=== PATIENT | female | born 1935 | race Caucasian/White ===

== ENCOUNTER 2021-03-15 09:00 | Outpatient (RCR) | payer MEDICARE, OTHER, SELFPAY | END 2021-03-15 09:05 | disposition home or self-care (01) | LOC: PT 09:00 | PROVIDERS: Visit Provider Internal Medicine | DX: R60.0 Localized edema (principal) | CPT/HCPCS: 97010; 97014; 97033; 97035; 97110; 97140; 97163; 97760; G0283 ==

== ENCOUNTER → 2023-01-30 09:53 | Outpatient (POV) | payer MEDICARE, OTHER, SELFPAY ==
[2023-01-30 10:16] VITALS: BP 168/88; PULSE 78; RESP 18; O2SAT 95; BMI 21.9
--- NOTE | 2023-01-30 11:18 | EXP.PAIN.OV ---
HPI Data of Consult Patient: new to practice Consult date: 01/30/23 Requesting Physician: Antonella Fierro APRN Primary Care Provider: Romero Pulido MD Consult Narrative Reason for consult: right leg pain, right hip pain History of present illness: Ms. Fisher is a 87 year old female who presents today as a new patient. She is a referral from Romero Pulido's office. Today she rates her pain an 8 out of 10. Patient states her pain is all in her right hip that radiates down her entire right leg to the lower calf. Patient does describe this as a achy, pressure sensation that is worse with increased activity or certain movements such as getting out of bed. Patient does state the pain interferes with her ability perform activities of daily living. She does state today that she is doing well and it is not bothering her. She states prior to this she had 2 weeks of severe pain however it did dissipate. Patient states that she did go to her primary care provider and they did think part of it could have been her SI joint. Patient states she will have occasional flareups and that this has been going on for couple of years. Patient denies any specific trauma or injury. Patient states she did go to physical therapy recently however it worsened her pain causing knee pain. Patient was sent to Abhinav Singh who did injections into her knees which did help. Patient was also sent to Dr. Thakkar who did a back injection and lasted approximately 6 months. Patient denies any previous surgery. She has tried Tylenol arthritis along with heat and ice and topicals with some improvement. Her Villa has been reviewed and is appropriate. CC: Antonella Fierro APRN [facility] Disclaimer: The information contained in this section may have been updated after the patient was seen, as this information can be updated by other users. Medical History (Updated 01/30/23 @ 11:21 by Antonella Fierro APRN) Afib DDD (degenerative disc disease), lumbar HLD (hyperlipidemia) HTN (hypertension) Migraines Mitral valve regurgitation Tricuspid regurgitation Urinary incontinence Surgical History (Updated 01/30/23 @ 10:33 by Rena Zambrano RN) No pertinent past surgical history Family History (Updated 01/30/23 @ 10:32 by Rena Zambrano RN) Other No significant family history Social History (Updated 01/30/23 @ 10:44 by Rena Zambrano RN) Smoking Status: Never smoker alcohol intake: never current occupational status: retired Travel in the last 8 weeks: None Review of Systems Review of Systems Review of systems:: pertinent systems reviewed and negative unless documented below Review of systems (narrative): Review of Systems: General: No recent weight changes, no fever, no sleep disturbances Respiratory: No cough, no shortness of air, no recurring pulmonary infections Cardiovascular/peripheral vascular: No chest pain, no palpitations, no edema, no shortness of breath Gastrointestinal: No new onset incontinence, normal bowel movements reported Genitourinary: No new onset incontinence Musculoskeletal: Right hip pain, right leg pain Psychiatric: [Normal mood/affect] Neurological: [Denies weakness in extremities], [denies balance issues] Meds Home Medications and Allergies Home Medications Medication Instructions Recorded Confirmed Type Unobtainable 01/30/23 01/30/23 History New Prescriptions to Start Prescriptions: Allergies Allergy/AdvReac Type Severity Reaction Status Date / Time No Known Allergies Allergy Verified 01/30/23 10:50 Objective Vital signs: Pulse Resp BP Pulse Ox O2 Del Method 78 18 168/88 H 95 Room Air 01/30/23 10:16 01/30/23 10:16 01/30/23 10:16 01/30/23 10:16 01/30/23 10:16 Narrative: Physical Exam: General: Alert and oriented x3, no acute distress, pleasant and cooperative Lungs: Respirations even and unlabored, symmetrical chest expansion Eyes: PERRL Musculoskeletal: Flexion a
== END ==
PROVIDERS: PCP Internal Medicine; Visit Provider Nurse Practitioner Family
DX: M51.36 Other intervertebral disc degeneration, lumbar region (principal); M25.551 Pain in right hip; M79.604 Pain in right leg
CPT/HCPCS: 99202; G0463

== ENCOUNTER 2023-09-26 11:15 | Emergency (ER) | payer MEDICARE, OTHER, SELFPAY ==
[2023-09-26 11:35] VITALS: BP 172/74; PULSE 67; RESP 20; TEMP 36.5; O2SAT 95; BMI 21.7
[2023-09-26 11:47] LABS: Apearance,Urine Cloudy (Clear); Bilirubin,Urine Negative (Negative); Blood, Urine 3+ (Negative); Color,Urine Amber (Yellow); Glucose,Urine (UA) Negative (Negative); Ketones,Urine Negative (Negative); PH,Urine 7.5 (5.0-8.5); Protein,Urine 2+ (Negative); UTC Leukocyte Esterase,Urine 2+ (Negative); UTC Nitrate,Urine Negative (Negative); Urobilinogen,Urine 1 EU/dl (0.2)
--- NOTE | 2023-09-26 11:54 | ED_ITS ---
Discharge Plan Disposition Patient Disposition: Home, Self-Care Condition: Good Prescriptions Prescriptions: New phenazopyridine [Pyridium] 200 mg tablet 200 mg PO Q8H 2 Days Qty: 6 0RF cephalexin 500 mg capsule 500 mg PO QID 7 Days Qty: 28 0RF No Action atorvastatin 10 mg Tablet 10 mg PO HS amlodipine 5 mg Tablet 5 mg PO DAILY calcium citrate [Citracal] 200 mg (950 mg) Tablet 200 mg PO DAILY clonidine HCl 0.1 mg Tablet 0.1 mg PO TID sotalol 80 mg Tablet 80 mg PO BID metoprolol succinate 100 mg Tablet Extended Release 24 Hr 100 mg PO DAILY hydrochlorothiazide 25 mg Tablet 25 mg PO DAILY lisinopril 40 mg Tablet 40 mg PO DAILY prazosin 2 mg Capsule 2 mg PO HS rivaroxaban 20 mg Tablet 20 mg PO DAILY Referrals Follow up/Referrals: Romero Pulido MD [Primary Care Provider] - See instructions Activity Restrictions/Add. Instructions Additional Instructions/Restrictions: Drink plenty of fluids. Take tylenol or ibuprofen for pain or fever. Take the medications as directed. Follow up with your regular doctor. GO TO THE ER FOR ANY WORSENING SYMPTOMS The pyridium will make your urine turn orange, this is an expected side effect. It will stain your clothes if it comes into contact with them. We will culture the urine. That will tell what bacteria is causing your infection and which antibiotics will treat it best. Sometimes the first antibiotic we prescribe turns out to not work against different bacteria. So, make sure you follow up within 3 days if you are not getting better. Clinical Impressions Clinical Impression: UTI (urinary tract infection) Instructions Patient Instructions: Urine Culture, DI for Urinary Tract Infection (UTI), Phenazopyridine, Cephalexin Discharge ED Provider: Irwin Sherman [facility] General Stated complaint: uti pain Mode of Arrival: Ambulatory Source of Information: Patient Limitations: No Limitations Time Seen by Provider: 09/26/23 11:54 Description of Symptoms (Recalled from Triage Doc. by RN): PATIENT C/O LOWER BACK PAIN, PELVIC PRESSURE, AND HEADACHE THAT STARTED YESTERDAY HEENT Symptoms (Recalled from RN notes): Yes Resp Symptoms (Recalled from RN notes): No Skin Symptoms (Recalled from RN notes): No MS Symptoms (Recalled from RN notes): No Functional Status (Recalled from RN notes): WNL History of Present Illness Provider Complaint: She states that for the past 2 days she has had low back pain, dysuria and urinary frequency. Related Data Home Medications Medication Instructions Recorded Confirmed amlodipine 5 mg tablet 5 mg PO DAILY 01/30/23 09/26/23 atorvastatin 10 mg tablet 10 mg PO HS 01/30/23 09/26/23 calcium citrate 200 mg (950 mg) 200 mg PO DAILY 01/30/23 09/26/23 tablet clonidine HCl 0.1 mg tablet 0.1 mg PO TID 01/30/23 09/26/23 hydrochlorothiazide 25 mg tablet 25 mg PO DAILY 01/30/23 09/26/23 lisinopril 40 mg tablet 40 mg PO DAILY 01/30/23 09/26/23 metoprolol succinate 100 mg 100 mg PO DAILY 01/30/23 09/26/23 tablet,extended release 24 hr prazosin 2 mg capsule 2 mg PO HS 01/30/23 09/26/23 rivaroxaban 20 mg tablet 20 mg PO DAILY 01/30/23 09/26/23 sotalol 80 mg tablet 80 mg PO BID 01/30/23 09/26/23 Previous Rx's Medication Instructions Recorded cephalexin 500 mg capsule 500 mg PO QID 7 days #28 caps 09/26/23 phenazopyridine 200 mg tablet 200 mg PO Q8H 2 days #6 tabs 09/26/23 (Pyridium) Allergies Allergy/AdvReac Type Severity Reaction Status Date / Time nitrofurantoin Allergy Verified 01/30/23 12:22 sulfamethoxazole Allergy Verified 01/30/23 12:22 [From Bactrim] trimethoprim [From Bactrim] Allergy Verified 01/30/23 12:22 Worker's Comp Is this a Worker's Comp case?: No [facility] Disclaimer: The information contained in this section may have been updated after the patient was seen, as this information can be updated by other users. Medical History (Updated 09/26/23 @ 11:56 by Irwin Sherman APRN) Tricuspid regurgitation Mitral valve regurgitation Urinary incontinence HTN (hypertension) HLD (hyperlipidemia) DDD (degenerative disc disease), lumbar Migraines Afib Surgical History No pertinent past surgical history Family History (Updated 01/30/23 @ 10:32 by Rena Zambrano RN) Other No significant family history Social History (Updated 01/30/23 @ 10:44 by Rena Zambrano RN) Smoking Status: Never smoker alcohol intake: never current occupational status: retired Travel in the last 8 weeks: None ROS Obtained: Yes All systems reviewed & no additional complaints except as documented Constitutional Constitutional: Reports system reviewed and no additional complaints, except as documented, Denies chills and Denies fever(s) Eyes Eyes: Denies eye discharge ENT Ears, Nose, Mouth, and Throat: Denies dysphagia, Denies sore throat and Denies throat swelling Cardiovascular Cardiovascular: Denies chest pain and Denies dyspnea Respiratory Respiratory: Denies chest congestion, Denies cough and Denies dyspnea Gastrointestinal Gastrointestingal: Denies abdominal pain, constipation, diarrhea, dysphagia, nausea or vomiting Genitourinary Female Genitourinary: Reports as per HPI, Reports dysuria, Reports urinary frequency, Denies urinary incontinence, Reports urinary hesitancy and Reports urinary urgency Musculoskeletal Musculoskeletal: Denies arthralgias and Reports back pain Integumentary/Breasts Skin/Breast: Denies rash Neurologic Neurologic: Denies paresthesias Allergic/Immunologic Allergic/Immunologic: Denies throat swelling Physical Exam General General appearance: alert and in no apparent distress Head Head exam: atraumatic and normocephalic Eye Eye exam: Present normal appearance, PERRL and EOMI ENT ENT exam: Present normal exam, mucous membranes moist, TM's normal bilaterally and normal external ear exam Neck Neck exam: Present normal inspection, full ROM and trachea midline; Absent tenderness, meningismus or lymphadenopathy Chest Chest inspection: Present normal inspection and symmetric chest wall rise; Absent tenderness Respiratory Respiratory exam: Present normal lung sounds bilaterally; Absent respiratory distress, wheezes or stridor Cardiovascular Cardiovascular exam: Present regular rate, normal rhythm and normal heart sounds Abdominal Exam Abdominal exam: Present soft and normal bowel sounds; Absent distention, tenderness, guarding, rebound, rigidity, incision, psoas sign, obturator sign, heel tap sign, Harrison's sign, Rovsing's sign or tenderness at McBurney's Point Extremities Exam Extremities exam: Present normal inspection, full ROM and normal capillary refill; Absent tenderness, edema, joint swelling, calf tenderness or cyanosis Back Exam Back exam: Present normal inspection and full ROM; Absent tenderness, CVA tenderness (R) or CVA tenderness (L) Neurological Exam Neurological exam: Present alert, oriented X3 and normal gait Psychiatric Psychiatric exam: Present normal affect and normal mood Skin Skin exam: Present warm, dry, intact and normal color Lymphatic Lymphatic Findings: no adenopathy Medical Decision Making Medical Records Medical records reviewed: No I reviewed the patient's medical records. Villa Inquiry Pt receiving controlled substance: No Vital Signs: 09/26/23 11:35 Temperature 97.7 F Temperature Source Oral Pulse Rate [Left Brachial] 67 Respiratory Rate 20 Blood Pressure [Left Arm] 172/74 H Blood Pressure Mean [Left Arm] 106 Blood Pressure Source [Left Arm] Automatic Cuff Blood Pressure Position [Left Arm] Sitting 02 Sat by Pulse Oximetry 95 Oxygen Delivery Method Room Air Lab Data Lab results reviewed: Yes I reviewed the patient's lab results. Lab Results 09/26/23 11:42: Urine Color Antonella, Urine Appearance Cloudy, Urine pH 7.5, Ur Specific [place] 1.020, Urine Protein 2+, Urine Glucose (UA) Negative, Urine Ketones Negative, Urine Blood 3+, Urine Nitrate Negative, Urine Bilirubin Negative, Urine Urobilinogen 1, Ur Leukocyte Esterase 2+ A Orders (Tests/Meds): ORDERS Category Date Time Status Urine Culture Stat Micro 09/26/23 11:42 Ordered
[2023-09-26 12:05] VITALS: BP 172/74; PULSE 67; RESP 20; TEMP 36.5; O2SAT 95
--- NOTE | 2023-09-30 13:57 | PC.NURSE ---
URINE CULTURE REVIEWED WITH Alfredo ENRIQUE, NO CHANGE NEEDED
== END 2023-09-26 12:08 | disposition home or self-care (01) ==
PROVIDERS: Emergency Provider Nurse Practitioner Family; PCP Internal Medicine
DX: N39.0 Urinary tract infection, site not specified (principal); B96.4 Proteus (mirabilis) (morganii) as the cause of diseases classified elsewhere; M54.59 Other low back pain; R30.0 Dysuria; R35.0 Frequency of micturition
CPT/HCPCS: 81003; 87086; 87088; 87186; 99204; 99212; G0463

== ENCOUNTER 2023-12-16 15:06 | Emergency (ER) | payer MEDICARE, OTHER, SELFPAY ==
[2023-12-16 16:19] VITALS: BP 167/84; PULSE 75; RESP 20; TEMP 36.5; O2SAT 96; BMI 21.7
[2023-12-16 16:24] LABS: Microscopic, Urine URINE MICROSCOPIC (MICROSCOPIC)
--- NOTE | 2023-12-16 16:32 | ED_ITS ---
Discharge Plan Disposition Patient Disposition: Home, Self-Care Condition: Good Prescriptions Prescriptions: New cephalexin 500 mg capsule 500 mg PO Q12H 7 Days Qty: 14 0RF No Action phenazopyridine [Pyridium] 200 mg tablet 200 mg PO Q8H 2 Days Qty: 6 0RF cephalexin 500 mg capsule 500 mg PO QID 7 Days Qty: 28 0RF atorvastatin 10 mg Tablet 10 mg PO HS amlodipine 5 mg Tablet 5 mg PO DAILY calcium citrate [Citracal] 200 mg (950 mg) Tablet 200 mg PO DAILY clonidine HCl 0.1 mg Tablet 0.1 mg PO TID sotalol 80 mg Tablet 80 mg PO BID metoprolol succinate 100 mg Tablet Extended Release 24 Hr 100 mg PO DAILY hydrochlorothiazide 25 mg Tablet 25 mg PO DAILY lisinopril 40 mg Tablet 40 mg PO DAILY prazosin 2 mg Capsule 2 mg PO HS rivaroxaban 20 mg Tablet 20 mg PO DAILY Referrals Follow up/Referrals: Provider,Referral, MD [Primary Care Provider] - See instructions Activity Restrictions/Add. Instructions Additional Instructions/Restrictions: Take medication as prescribed. Increase fluids and rest. Follow up with PCP if symptoms persist or worsen Clinical Impressions Clinical Impression: UTI (urinary tract infection) Qualifiers: Urinary tract infection type: acute cystitis Hematuria presence: with hematuria Qualified Code(s): N30.01 - Acute cystitis with hematuria Instructions Patient Instructions: DI for Urinary Tract Infection (UTI) Print Language Print Language: Mongolian Discharge ED Provider: Nanda Daniels [facility] General Stated complaint: poss UTI Mode of Arrival: Ambulatory Source of Information: Patient Time Seen by Provider: 12/16/23 16:24 Description of Symptoms (Recalled from Triage Doc. by RN): C/O UTI S/S, BURNING AND PRESSURE HEENT Symptoms (Recalled from RN notes): No Resp Symptoms (Recalled from RN notes): No Skin Symptoms (Recalled from RN notes): No MS Symptoms (Recalled from RN notes): No Functional Status (Recalled from RN notes): WNL Related Data Home Medications ?Medication ?Instructions ?Recorded ?Confirmed amlodipine 5 mg tablet 5 mg PO DAILY 01/30/23 09/26/23 atorvastatin 10 mg tablet 10 mg PO HS 01/30/23 09/26/23 calcium citrate 200 mg PO DAILY 01/30/23 09/26/23 clonidine HCl 0.1 mg tablet 0.1 mg PO TID 01/30/23 09/26/23 hydrochlorothiazide 25 mg tablet 25 mg PO DAILY 01/30/23 09/26/23 lisinopril 40 mg tablet 40 mg PO DAILY 01/30/23 09/26/23 metoprolol succinate 100 mg 100 mg PO DAILY 01/30/23 09/26/23 tablet,extended release 24 hr prazosin 2 mg capsule 2 mg PO HS 01/30/23 09/26/23 rivaroxaban 20 mg tablet 20 mg PO DAILY 01/30/23 09/26/23 sotalol 80 mg tablet 80 mg PO BID 01/30/23 09/26/23 Previous Rx's ?Medication ?Instructions ?Recorded cephalexin 500 mg capsule 500 mg PO QID 7 days #28 caps 09/26/23 phenazopyridine 200 mg tablet 200 mg PO Q8H 2 days #6 tabs 09/26/23 (Pyridium) cephalexin 500 mg capsule 500 mg PO Q12H 7 days #14 caps 12/16/23 Allergies Allergy/AdvReac Type Severity Reaction Status Date / Time nitrofurantoin Allergy Verified 01/30/23 12:22 sulfamethoxazole Allergy Verified 01/30/23 12:22 [From Bactrim] trimethoprim [From Bactrim] Allergy Verified 01/30/23 12:22 Worker's Comp Is this a Worker's Comp case?: No [facility] Disclaimer: The information contained in this section may have been updated after the patient was seen, as this information can be updated by other users. Medical History (Updated 12/16/23 @ 16:43 by Nanda Daniels APRN) Tricuspid regurgitation Mitral valve regurgitation Urinary incontinence HTN (hypertension) HLD (hyperlipidemia) DDD (degenerative disc disease), lumbar Migraines Afib Surgical History No pertinent past surgical history Family History (Updated 01/30/23 @ 10:32 by Rena Zambrano RN) Other No significant family history Social History (Updated 01/30/23 @ 10:44 by Rena Zambrano RN) Smoking Status: Never smoker alcohol intake: never current occupational status: retired Travel in the last 8 weeks: None ROS Obtained: Yes All systems reviewed & no additional complaints except as documented Constitutional Constitutional: Reports system reviewed and no additional complaints, except as documented Eyes Eyes: Reports system reviewed and no additional complaints, except as documented ENT Ears, Nose, Mouth, and Throat: Reports system reviewed and no additional complaints, except as documented Cardiovascular Cardiovascular: Reports system reviewed and no additional complaints, except as documented Respiratory Respiratory: Reports system reviewed and no additional complaints, except as documented Gastrointestinal Gastrointestingal: Reports system reviewed and no additional complaints, except as documented Genitourinary Female Genitourinary: Reports system reviewed and no additional complaints, except as documented and Reports dysuria Musculoskeletal Musculoskeletal: Reports system reviewed and no additional complaints, except as documented Integumentary/Breasts Skin/Breast: Reports system reviewed and no additional complaints, except as documented Neurologic Neurologic: Reports system reviewed and no additional complaints, except as do cumented Endocrine Endocrine: Reports system reviewed and no additional complaints, except as documented Hematologic/Lymphatic Henatologic/Lymphatic: Reports system reviewed and no additional complaints, except as documented Allergic/Immunologic Allergic/Immunologic: Reports system reviewed and no additional complaints, except as documented Physical Exam General General appearance: alert and in no apparent distress Head Head exam: atraumatic and normocephalic Eye Eye exam: Present normal appearance ENT ENT exam: Present normal exam and normal oropharynx Neck Neck exam: Present normal inspection Chest Chest inspection: Present normal inspection and symmetric chest wall rise Respiratory Respiratory exam: Present normal lung sounds bilaterally Cardiovascular Cardiovascular exam: Present regular rate and normal rhythm Abdominal Exam Abdominal exam: Present soft, tenderness and normal bowel sounds Abdominal tenderness: Present suprapubic Extremities Exam Extremities exam: Present normal inspection Back Exam Back exam: Present normal inspection Neurological Exam Neurological exam: Present alert and oriented X3 Psychiatric Psychiatric exam: Present normal affect and normal mood Skin Skin exam: Present warm, dry and intact Lymphatic Lymphatic Findings: no adenopathy Medical Decision Making Medical Records Screening: Per USPSTF and CDC recommendations, given the prevalence of disease in our region, it is our hospital?s policy to screen for HIV and viral Hepatitis for all patients aged 18 and over and those with ongoing risk factors. Villa Inquiry Pt receiving controlled substance: No Villa was queried for this patient: No Vital Signs: 12/16/23 16:19 Temperature 97.7 F Temperature Source Oral Pulse Rate [Left Radial] 75 Respiratory Rate 20 Blood Pressure [Left Arm] 167/84 H Blood Pressure Mean [Left Arm] 111 02 Sat by Pulse Oximetry 96 Orders (Tests/Meds): ORDERS Category Date Time Status UA [Urinalysis and Microscopic] Stat Lab 12/16/23 16:04 Received
[2023-12-16 17:11] LABS: Appearance,Urine CLEAR (Clear); Bilirubin,Urine Negative (Negative); Blood, Urine 2+ (Negative); Color,Urine YELLOW (Yellow); Glucose,Urine (UA) Negative (Negative); Ketones,Urine Negative (Negative); Leukocyte Esterase,Urine 1+ (Negative); Nitrate,Urine Negative (Negative); Protein,Urine 1+ (Negative); Specific Gravity, Urine >= 1.030 (1.005-1.030); Urobilinogen,Urine 0.2 EU/dl (0.2)
[2023-12-16 18:06] VITALS: BP 167/84; PULSE 75; RESP 20; TEMP 36.5
--- NOTE | 2023-12-19 14:04 | PC.NURSE ---
REVIEWED PATIENT'S URINE CULTURE WITH Esvin CEDENO APRN. NO CHANGES NEEDED AT THIS TIME
== END 2023-12-16 18:06 | disposition home or self-care (01) ==
PROVIDERS: Emergency Provider Nurse Practitioner Family
DX: N30.01 Acute cystitis with hematuria (principal)
CPT/HCPCS: 81001; 87086; 87088; 87186; 99213; G0381

== ENCOUNTER 2024-11-09 14:45 | Outpatient (CLI) | payer MEDICARE, OTHER, SELFPAY ==
--- OUTSIDE RECORDS SUMMARY | 2024-10-10 10:00 | XMS_ITS | Encounter Summary ---
Author Organization [facility] Address [address] [place] [address] Care Team Providers Care Residential Supervisor Name Role Phone Romero Pulido MD Primary Care Provider [phone] Reason for Visit * Reason Comments Follow-up 6 month follow up ch steven medical problems Encounter Details Date Type Department Care Team (Late st Contact Info) Description 10/10/2024 10:00 AM EDT Office Visit [facility]EDIATRICS [address] [phone] Romero Pulido MD [address] [address] Essential hypertension (Primary Dx); Migraine without status migrainosus, not intractable, unspecified migraine type; Hyperlipidemia, unspecified hyperlipidemia type; Chronic atrial fibrillation; Impaired glucose tolerance; Leukocytes in urine Social History Tobacco Use Types Packs/Day Years Used Date Smoking Tobacco: Never Passive Smoke Exposure: Never Smokeless Tobacco: Never Tobacco Cessation:Counseling Given: Not Answered Alcohol Use Standard Drinks/Week Comments No 0 (1 standard drink = 0.6 oz pur e alcohol) PHQ-2 Answer Date Recorded Retired PHQ-9: Brief Depression Severity Measure Score 0 03/30/2022 PHQ-2 Answer Date Recorded Patient Health Questionnaire-2 Score 0 04/11/2024 Comments No Sex and Gender Information Value Date Recorded Sex Assigned at Female 10/03/2024 2:48 PM EDT Legal Sex Female 12:50 PM EDT Gender Identity Not on file Sexual Orientation Not on file documented as of this encounter Last Filed Vital Signs Vital Sign Reading Time Taken Comments Blood Pressure 142/68 10/10/2024 10:24 AM EDT Pulse 68 10/10/2024 9:49 AM EDT Temperature 36.4 C (97.5 F) 10/10/2024 9:49 AM EDT Respiratory Rate 16 10/10/2024 9:49 AM EDT Oxygen Saturation - - Inhaled Oxygen Concentration - - Weight 53.5 kg (118 lb) 10/10/2024 9:49 AM EDT Height - - Body Mass Index 21.76 04/11/2024 10:07 AM EST documented in this encounter Progress Notes * Romero Pulido MD - 10/10/2024 10:00 AM EDT Chief Complaint Patient presents with Follow-up 6 month follow up chronic medical problems History of Present Illness The patient has a history of migraines. She states she gets relief from migraine medication. She only uses them as needed and requests a refill today. The patient presents for a follow-up related to hypertension. The patient reports that she has had no headaches, chest pain, dyspnea, edema, syncope, blurred vision or palpitations. She states that she is taking her medication as prescribed. She is not having medication side effects. The patient presents for a follow-up related to hyperlipidemia. She is following a low fat diet. She reports that she is exercising. She is taking atorvastatin. The patient is taking her medication as prescribed. She reports no medication side effects, including muscle cramps, abdominal pain, headaches or weakness. She denies orthopnea, paroxysmal nocturnal dyspnea or dyspnea on exertion. The patient presents for a follow-up related to chronic atrial fibrillation. She denies palpitations. The patient denies fatigue, dizziness, nausea or exercise intolerance. The patient presents for a follow-up related to impaired glucose tolerance. She does not check her blood sugars at home. She denies hypoglycemic symptoms. The patient denies polyuria, polydypsia or polyphagia. She reports no symptoms of neuropathy. The patient is not on medication for her impaired glucose tolerance. The patient does check her feet daily at home. Medications Current Outpatient Medications: amLODIPine (NORVASC) 5 MG tablet, TAKE 1 TABLET EVERY DAY, Disp: 90 tablet, Rfl: 3 atorvastatin (LIPITOR) 10 MG tablet, TAKE 1 TABLET AT BEDTIME, Disp: 90 tablet, Rfl: 3 oqwwqdwylc-mwnqwtjtpnxff-yqzmloop-codeine (FIORICET WITH CODEINE) 44-039-66-30 MG per capsule, Take1 capsule by mouth Every 6 (Six) Hours As Needed for Headache., Disp: 90 capsule, Rfl: 2 calcium citrate-vitamin d (CITRACAL) 200-250 MG-UNIT tablet tablet, Take by mouth Daily., Disp: , Rfl: Cholecalciferol (VITAMIN D3 PO), Take by mouth Daily., Disp: , Rfl: cloNIDine (CATAPRES) 0.1 MG tablet, Take 1 tablet by mouth 3 (Three) Times a Day As Needed for HighBlood Pressure., Disp: 90 tablet, Rfl: 1 fluticasone (FLONASE) 50 MCG/ACT nasal spray, 2 sprays Daily., Disp: , Rfl: GARLIC-VIT B6-VIT B12-FA PO, Take by mouth Daily., Disp: , Rfl: hydroCHLOROthiazide (HYDRODIURIL) 25 MG tablet, TAKE 1 TABLET EVERY DAY (Patient taking differently: Take 0.5 tablets by mouth Daily.), Disp: 90 tablet, Rfl: 3 lisinopril (PRINIVIL,ZESTRIL) 40 MG tablet, Take 1 tablet by mouth Daily., Disp: , Rfl: metoprolol succinate XL (Toprol XL) 100 MG 24 hr tablet, Take 1 tablet by mouth Daily., Disp: 30 tablet, Rfl: 0 prazosin (MINIPRESS) 2 MG capsule, Take 1 capsule by mouth Every Night., Disp: , Rfl: rivaroxaban (XARELTO) 20 MG tablet, Take 1 tablet by mouth Daily With Dinner., Disp: , Rfl: sotalol (BETAPACE) 80 MG tablet, Take 0.5 tablets by mouth 2 (Two) Times a Day. 1/2 in the morning and 1/2 at night, Disp: , Rfl: Allergies Allergies Allergen Reactions Bactrim [Sulfamethoxazole-Trimethoprim] Rash Nitrofurantoin Rash Problem List Patient Active Problem List Diagnosis Abnormal CT of the chest Bronchiectasis without complication Dyslipidemia Essential hypertension Prediabetes Microscopic hematuria Chronic tension-type headache, not intractable Recurrent UTI Varicose veins of legs Functional urinary incontinence Menopause Vaginal atrophy Chronic atrial fibrillation Spondylosis of lumbar region without myelopathy or radiculopathy Degeneration of lumbar or lumbosacral intervertebral disc Lumbar stenosis with neurogenic claudication 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 Physical Examination BP 142/68 Pulse 68 Temp 97.5 ??F (36.4 ??C) (Infrared) Resp 16 Wt 53.5 kg (118 lb) LMP (LMP Unknown) BMI 21.76 kg/m?? Answers submitted by the patient for this visit: High Blood Pressure Questionnaire (Submitted on 10/03/2024) Chief Complaint: Hypertension Chronicity: recurrent Onset: more than 1 year ago Progression since onset: unchanged Condition status: controlled Compliance problems: no compliance problems Additional Information: Has been OK Physical Exam Vitals reviewed. Constitutional: General: She is not in acute distress. Appearance: Normal appearance. She is not ill-appearing, toxic-appearing or diaphoretic. HENT: Head: Normocephalic and atraumatic. Eyes: General: No scleral icterus. Pupils: Pupils are equal, round, and reactive to light. Cardiovascular: Rate and Rhythm: Normal rate and regular rhythm. Pulses: Normal pulses. Heart sounds: Normal heart sounds. No murmur heard. No friction rub. No gallop. Pulmonary: Effort: Pulmonary effort is normal. No respiratory distress. Breath sounds: Normal breath sounds. No stridor. No wheezing, rhonchi or rales. Chest: Chest wall: No tenderness. Neurological: General: No focal deficit present. Mental Status: She is alert. Psychiatric: Mood and Affect: Mood normal. Behavior: Behavior normal. Thought Content: Thought content normal. Judgment: Judgment normal. Diagnoses and all orders for this visit: 1. Essential hypertension (Primary) - CBC & Differential; Future - Comprehensive Metabolic Panel; Future - POC Urinalysis Dipstick, Automated; Future 2. Migraine without status migrainosus, not intractable, unspecified migraine type - qvaceomhbf-jeivxeloqyhit-ghgvtlps-codeine (FIORICET WITH CODEINE) 48-005-27-30 MG per capsule; Take 1 capsule by mouth Every 6 (Six) Hours As Needed for Headache. Dispense: 90 capsule; Refill: 2 3. Hyperlipidemia, unspecified hyperlipidemia type - Comprehensive Metabolic Panel; Future 4. Chronic atrial fibrillation 5. Impaired glucose tolerance - Hemoglobin A1c; Future - POC Microalbumin; Future Discussed continue on all prescribed medications. The patient was instructed to return for follow-up and medicare wellness physical in 6 months. The patient was instructed to return sooner if the condition changes, worsens, or does not resolve. Attending Note: Patient was personally seen and examined by me. I have obtained and corroborated the history and examination as documented above, and agree with the accuracy of the documented information. All orders were reviewed and personally signed by me. Romero Pulido MD 14:37 EDT 10/10/24 documented in this encounter Plan of Treatment Upcoming Encounters Date Type Department Care Team (Late st Contact Info) Description 04/23/2025 10:00 AM EST Office Visit [facility]AT[facility]ICS [address] [phone] Romero Pulido MD [address] [address] documented as of this encounter Procedures Procedure Name Priority Date/Time Associated Diagnosis Comments POCT URINALYSIS DIPSTICK, AUTOMATED Routine 10/10/2024 2:11 PM EDT Essential hypertension POCT MICROALBUMIN Routine 10/10/2024 2:1 1 PM EDT Impaired glucose tolerance URINE CULTURE Routine 10/10/2024 11:31 AM EDT Leukocytes in urine CBC WITH AUTO DIFFERENTIAL Routine 10/10/2024 11:10 AM EDT Essential hypertension CBC AND DIFFERENTIAL Routine 10/10/2024 11:10 AM EDT Essential hypertension HEMOGLOBIN A1C Routine 10/10/2024 11:10 AM EDT Impaired glucose tolerance COMPREHENSIVE METABOLIC PANEL Routine 10/10/2024 11:10 AM EDT Essential hypertension Hyperlipidemia, unspecified hyperlipidemia type documented in this encounter Results * POC Microalbumin (10/10/2024 2:11 PM EDT) Microalbumin, Urine 30 [facility] Creatinine, Urine 200 [facility] Lot Number [id number] [facility] Expiration Date 07/03/25 [facility] POC Urine Albumin Creatinine Ratio <30 <30 [facility] Urine 10/10/2024 2:11 PM EDT Romero Pulido MD POINT OF CARE TEST ORDERAB LES Final Result Performing Organization Address City/[facility]/ZIP Co de Phone Number [facility]
[address] [place] [address], [place] [phone] * (ABNORMAL) POC Urinalysis Dipstick, Automated (10/10/2024 2:11 PM EDT) Pathologist Kevin Color Yellow Yellow, Straw, Dark Yellow, Antonella [facility] Clarity, UA Clear Clear [facility] Specific [place] 1.010 1.005 - 1.030 [facility] pH, Urine 7.0 5.0 - 8.0 [facility] Leukocytes 500 Jean/ul(A) Negative [facility] Nitrite, UA Negative Negative [facility] Protein, POC Negative Negative mg/dL [facility] Glucose, UA Negative Negative mg/dL [facility] Ketones, UA Negative Negative [facility] Urobilinogen, UA Normal Normal, 0.2 E.U./dL [facility] Bilirubin Negative Negative [facility] Blood, UA Negative Negative [facility] Lot Number [id number] [facility] Expiration Date 09/02/25 [facility] Urine 10/10/2024 2:11 PM EDT us Romero Pulido MD POINT OF CARE TEST ORDERAB LES Final Result [facility]
[address] [place] [address], * Urine Culture - Urine, Urine, Clean Catch (10/10/2024 11:31 AM EDT) Pathologist [facility] Urine Culture <10,000 CFU/mL Normal Urogenital Asia PAMELA 10/12/2024 10:55 AM EDT [facility] Urine Urine specimen obtained by clean catch procedure / Unknown Collection / Unknown 10/10/2024 11:31 AM EDT 10/10/2024 11:31 AM EDT [facility] - 10/12/2024 10:55 AM EDT Colonization of the urinary tract without infection is common. Treatment is discouraged unless the patient is symptomatic, , or undergoing an invasive urologic procedure. Romero Pulido MD MICROBIOLOGY - GENERAL ORD ERABLES Final Result Performing Organization Address [facility]/State/ZIP Co de Phone Number [facility]
[address] [place] [address], * (ABNORMAL) CBC Auto Differential (10/10/2024 11:10 AM EDT) Pathologist [facility] WBC 5.00 3.40 - 10.80 10*3/mm3 10/10/2024 6:24 PM EDT [facility] RBC 3.74(L) 3.77 - 5.28 10*6/mm3 10/10/2024 6:24 PM EDT [facility] Hemoglobin 13.0 12.0 - 15.9 g/dL 10/10/2024 6:24 PM T [facility] Hematocrit 37.8 34.0 - 46.6 % 10/10/2024 6:24 PM [facility] MCV 101.1(H) 79.0 - 97.0 fL 10/10/2024 6:24 PM EDT [facility] MCH 34.8(H) 26.6 - 33.0 pg 10/10/2024 6:24 PM EDT [facility] MCHC 34.4 31.5 - 35.7 g/dL 10/10/2024 6:24 PM EDT [facility] RDW 11.1(L) 12.3 - 15.4 % 10/10/2024 6:24 PM EDT [facility] RDW-SD 40.9 37.0 - 54.0 fl 10/10/2024 6:24 PM EDT [facility] MPV 11.8 6.0 - 12.0 fL 10/10/2024 6:24 PM EDT [facility] Platelets 208 140 - 450 10*3/mm3 10/10/2024 6:24 PM T [facility] Neutrophil % 68.8 42.7 - 76.0 % 10/10/2024 6:24 PM T [facility] Lymphocyte % 16.0(L) 19.6 - 45.3 % 10/10/2024 6:24 PM EDT [facility] Monocyte % 12.2(H) 5.0 - 12.0 % 10/10/2024 6:24 PM EDT [facility] Eosinophil % 2.2 0.3 - 6.2 % 10/10/2024 6:24 PM EDT [facility] Basophil % 0.4 0.0 - 1.5 % 10/10/2024 6:24 PM EDT [facility] Immature Grans % 0.4 0.0 - 0.5 % 10/10/2024 6:24 PM EDT [facility] Neutrophils, Absolute 3.44 1.70 - 7.00 10*3/mm3 10/10/2024 6:24 PM EDT [facility] Lymphocytes, Absolute 0.80 0.70 - 3.10 10*3/mm3 10/10/2024 6:24 PM EDT [facility] Monocytes, Absolute 0.61 0.10 - 0.90 10*3/mm3 10/10/2024 6:24 PM EDT [facility] Eosinophils, Absolute 0.11 0.00 - 0.40 10*3/mm3 10/10/2024 6:24 PM EDT [facility] Basophils, Absolute 0.02 0.00 - 0.20 10*3/mm3 10/10/2024 6:24 PM EDT [facility] Immature Grans, Absolute 0.02 0.00 - 0.05 10*3/mm3 10/10/2024 6:24 PM EDT [facility] nRBC 0.0 0.0 - 0.2 /100 WBC 10/10/2024 6:24 PM EDT [facility] Blood Venipuncture / Unknown 10/10/2024 11:10 AM EDT 10/10/2024 11:10 AM EDT us Romero Pulido MD LAB BLOOD ORDERABLES Final Result Performing Organization Address [facility]/ZIP Co de Phone Number [facility]
[address] [place] [address], * (ABNORMAL) Hemoglobin A1c (10/10/2024 11:10 AM EDT) Hemoglobin A1C 6.20(H) 4.80 - 5.60 % 10/10/2024 7:04 PM EDT [facility] Blood Venipuncture / Unknown 10/10/2024 11:10 AM EDT 10/10/2024 11:10 AM EDT Narrative [facility] - 10/10/2024 7:04 PM EDT Hemoglobin A1C Ranges: Increased Risk for Diabetes 5.7% to 6.4% Diabetes >= 6.5% Diabetic Goal < 7.0% us Romero Pulido MD LAB BLOOD ORDERABLES Final Result Performing Organization Address City/[facility]/ZIP Co de Phone Number [facility]
[address] [place] [address], * (ABNORMAL) Comprehensive Metabolic Panel (10/10/2024 11:10 AM EDT) Glucose 101(H) 65 - 99 mg/dL 10/10/2024 7:48 PM [facility] BUN 12.0 8.0 - 23.0 mg/dL 10/10/2024 7:48 PM [facility] Creatinine 0.61 0.57 - 1.00 mg/dL 10/10/2024 7:48 PM [facility] Sodium 133(L) 136 - 145 mmol/L 10/10/2024 7:48 PM T [facility] Potassium 4.6 3.5 - 5.2 mmol/L 10/10/2024 7:48 PM [facility] Chloride 92(L) 98 - 107 mmol/L 10/10/2024 7:48 PM [facility] CO2 30.0(H) 22.0 - 29.0 mmol/L 10/10/2024 7:48 PM [facility] Calcium 10.1 8.6 - 10.5 mg/dL 10/10/2024 7:48 PM T [facility] Total Protein 7.2 6.0 - 8.5 g/dL 10/10/2024 7:48 PM T [facility] Albumin 4.4 3.5 - 5.2 g/dL 10/10/2024 7:48 PM [facility] ALT (SGPT) 12 1 - 33 U/L 10/10/2024 7:48 PM T [facility] AST (SGOT) 26 1 - 32 U/L 10/10/2024 7:48 PM T [facility] Alkaline Phosphatase 103 39 - 117 U/L 10/10/2024 7:48 PM T [facility] Total Bilirubin 0.4 0.0 - 1.2 mg/dL 10/10/2024 7:48 PM T [facility] Globulin 2.8 gm/dL 10/10/2024 7:48 PM [facility] A/G Ratio 1.6 g/dL 10/10/2024 7:48 PM T [facility] BUN/Creatinine Ratio 19.7 7.0 - 25.0 10/10/2024 7:48 PM EDT [facility] Anion Gap 11.0 5.0 - 15.0 mmol/L 10/10/2024 7:48 PM EDT [facility] eGFR 86.7 >60.0 mL/min/1.7 3 10/10/2024 7:48 PM EDT [facility] Blood Structure of left upper limb / Unknown Venipuncture / Unknown 10/10/2024 11:10 AM EDT 10/10/2024 11:10 AM EDT Narrative [facility] - 10/10/2024 7:48 PM EDT GFR Categories in Chronic Kidney Disease (CKD) GFR Category GFR (mL/min/1.73) Interpretation G1 90 or greater Normal or high (1) G2 60-89 Mild decrease (1) G3a 45-59 Mild to moderate decrease G3b 30-44 Moderate to severe decrease G4 15-29 Severe decrease G5 14 or less Kidney failure (1)In the absence of evidence of kidney disease, neither GFR category G1 or G2 fulfill the criteria for CKD. eGFR calculation 2020 CKD-EPI creatinine equation, which does not include race as a factor Romero Pulido MD LAB BLOOD ORDERABLES Final Result [facility]
[address] [place] [address], documented in this encounter Visit Diagnoses Diagnosis Essential hypertension- Primary Unspecified essential hypertension Migraine without status migrainosus, not intractable, unspecified migraine type Hyperlipidemia, unspecified hyperlipidemia type Chronic atrial fibrillation Atrial fibrillation Impaired glucose tolerance Impaired glucose tolerance test Leukocytes in urine Other nonspecific finding on examination of urine documented in this encounter Care Teams Residential Supervisor Relationship Specialty Start Date End Date Romero Pulido MD 100 [facility] [address] [place] [address] PCP - General Internal Medicine 08/19/19 documented as of this encounter
--- OUTSIDE RECORDS SUMMARY | 2024-11-11 10:26 | XMS_ITS | Clinical Summary ---
Author Organization [facility] Address [address] [place] [address] Care Team Providers Care Commodity Buyer Name Role Phone Romero Pulido MD Primary Care Provider [phone]- [phone] Allergies Active Allergy Reactions Criticality Noted Date Comments Sulfamethoxazole-Trimethoprim Rash Medium 2015 Nitrofurantoin Rash Low 06/12/2015 Medications sotalol (BETAPACE) 80 MG tablet Take 0.5 tablets by mouth 2 (Two) Times a Day. 1/2 in the morning and 1/2 at night 5 Active rivaroxaban (XARELTO) 20 MG tablet Take 1 tablet by mouth Daily With Dinner. 5 Active lisinopril (PRINIVIL,ZESTRI L) 40 MG tablet Take 1 tablet by mouth Daily. 9 Active cloNIDine (CATAPRES) 0.1 MG tabletIndication s:Essential hypertension Take 1 tablet by mouth 3 (Three) Times a Day As Needed for High Blood Pressure. 90 tablet 1 2 Active GARLIC-VIT B6-VIT B12-FA PO Take by mouth Daily. Active calcium citrate-vitamin d (CITRACAL) 200-250 MG-UNIT tablet tablet Take by mouth Daily. Active Cholecalciferol (VITAMIN D3 PO) Take by mouth Daily. Active fluticasone (FLONASE) 50 MCG/ACT nasal spray 2 sprays Daily. 2 Active metoprolol succinate XL (Toprol XL) 100 MG 24 hr tabletIndication s:Essential hypertension Take 1 tablet by mouth Daily. 30 tablet 2 Active prazosin (MINIPRESS) 2 MG capsule Take 1 capsule by mouth Every Night. Active hydroCHLOROthiaz brittany (HYDRODIURIL) 25 MG tablet TAKE 1 TABLET EVERY DAY 90 tablet 3 4 Active Additional Information Patient taking differently: 12.5 mg Oral Daily, Reported on 10/10/2024 amLODIPine (NORVASC) 5 MG tablet TAKE 1 TABLET EVERY DAY 90 tablet 3 5 Active atorvastatin (LIPITOR) 10 MG tablet TAKE 1 TABLET AT BEDTIME 90 tablet 3 5 Active butalbital-aceta minophen-caffein e-codeine (FIORICET WITH CODEINE) 44-013-21-30 MG per capsuleIndicatio ns:Migraine without status migrainosus, not intractable, unspecified migraine type Take 1 capsule by mouth Every 6 (Six) Hours As Needed for Headache. 90 capsule 2 5 Active Active Problems Problem Noted Date Diagnosed Date Lumbar radiculopathy 07/01/2021 Physical deconditioning 07/01/2021 Spondylosis of lumbar region without myelopathy or radiculopathy 06/29/2021 Degeneration of lumbar or lumbosacral interverte bral disc 06/29/2021 Lumbar stenosis with neurogenic claudication Synovial cyst of lumbar facet joint 06/29/2021 Ligamentum flavum hypertrophy 06/29/2021 Primary osteoarthritis of both knees 06/29/2021 Chronic atrial fibrillation 01/18/2018 Functional urinary incontinence 01/02/2017 Menopause 01/02/2017 Vaginal atrophy 01/02/2017 Recurrent UTI 12/01/2016 Microscopic hematuria 12/23/2015 Chronic tension-type headache, not intractable [address] of the chest 12/02/2015 Overview (12/02/2015): A. CT scan of the chest 01/16/2014 reports small fiber nodular densities within the left upper lobe, scarring within the lingula, a small area of pleural thickening in the right upper lobe and a calcified granuloma in the left lung base, all are stable when compared to prior study of 12/17/2009. Bronchiectasis without complication 12/02/2015 Dyslipidemia 12/02/2015 Essential hypertension 12/02/2015 Prediabetes 12/02/2015 Varicose veins of legs Resolved Problems Problem Noted Date Diagnosed Date Resolved Date History of echocardiogram 12/23/2015 Overview (12/23/2015): ECHO OF 06/04/08, REPORTS AN EJECTION FRACTION ESTIMATED TO BE BETWEEN 40-50%, MODERATE MITRAL REGURGITATION, MILD TO MODERATE TRICUSPID REGURGITATION, RIGHT VENTRICULAR CAVITY SIZE IS MIDLY ENLARGED, AND RSVP CALCULATED AT 33.4 MMHG. UTI (urinary tract infection) 12/23/2015 01/02/2017 Typical atrial flutter 12/23/201501/18 Acute upper respiratory infection 12/23/2015 12/12/2018 Hemoptysis 12/02/2015 08/25/2019 Dysuria 12/02/2015 08/25/2019 Overview (12/02/2015): h/o Urinary incontinence 017 Hypertension 01/10/2017 Encounters Date Type Department Care Team Description 10/13/2024 Results Follow-Up [facility] [address] [place] [address] [address] [place] [address] Romero Pulido MD 10/10/2024 10:00 AM EDT Office Visit [facility] [address] [place] [phone] Romero Pulido MD Essential hypertension (Primary Dx); Migraine without status migrainosus, not intractable, unspecified migraine type; Hyperlipidemia, unspecified hyperlipidemia type; Chronic atrial fibrillation; Impaired glucose tolerance; Leukocytes in urine 10/10/2024 Travel from Last 3 Months Immunizations Immunization Administration Dates Next Due COVID-19 (NINOSKA) 05/28/2020 COVID-19 (PFIZER) BIVALENT 12+YRS 03/30/2022 FLUAD TRI 65YR+ 12/12/2018 FluMist 2-49yrs 12/29/2014,12/23/2013,01/17/2013 Fluzone High-Dose 65+YRS 01/18/2018,01/10/2017,1 Fluzone High-Dose 65+yrs 12/23/2021,01/14/2021 Hepatitis A 09/09/2018,02/08/2018 Pneumococcal Conjugate 13-Valent (PCV13) 015 Shingrix 11/30/2018,09/09/2018 Zostavax 03/06/2012 Family History Medical History Relation Name Comments No Known Problems Mother Relation Name Status Comments Mother Social History Tobacco Use Types Packs/Day Years [...] on file Sexual Orientation Not on file Last Filed Vital Signs Vital Sign Reading Time Taken Comments Blood Pressure 142/68 10/10/2024 10:24 AM EDT Pulse 68 10/10/2024 9:49 AM EDT Temperature 36.4 C (97.5 F) 10/10/2024 9:49 AM EDT Respiratory Rate 16 10/10/2024 9:49 AM EDT Oxygen Saturation 96% 12/23/2021 12:10 PM EDT Inhaled Oxygen Concentration - - Weight 53.5 kg (118 lb) 10/10/2024 9:49 AM EDT Height 156.8 cm (5' 1.75 ) 04/11/2024 10:[address] Body Mass Index 21.76 04/11/2024 10:07 AM EST Plan of Treatment Upcoming Encounters Date Type Department Care Team (Late st Contact Info) Description 04/23/2025 10:00 AM EST Office Visit [facility] [address] [facility] [address] [place] [address] Romero Pulido MD [address] [facility] [address] [place] [address] Health Maintenance Due Date Last Done Comments TDAP/TD VACCINES (1 - Tdap) 1954 RSV Vaccine - Adults (1 - 1-dose 75+ series) 2012 COVID-19 Vaccine (4 - season) 2024 03/30/2022, 02/06/2021, 05/28/2020 INFLUENZA VACCINE 12/04/2024 12/25/2023, , 02/01/2023, Additional history exists DXA SCAN 01/04/2025 Postponed from 1937 (Patient Refused) ANNUAL WELLNESS VISIT 04/11/2025 04/11/2024 , 04/05/2023, 03/30/2022, Additional history exists LIPID PANEL 04/11/2025 04/11/2024, 09/05, 04/05/2023, Additional history exists ZOSTER VACCINE Completed 11/30/2018, 070 09/2018, 03/06/2012 Pneumococcal Vaccine 50+ Completed 020 (Patient-Reported (Performed Externally)), 12/29/2014 Procedures Procedure Name Priority Date/Time Associated Diagnosis Comments POCT MICROALBUMIN Routine 10/10/2024 2:1 1 PM EDT Impaired glucose tolerance POCT URINALYSIS DIPSTICK, AUTOMATED Routine 10/10/2024 2:11 PM EDT Essential hypertension URINE CULTURE Routine 10/10/2024 11:31 AM EDT Leukocytes in urine CBC AND DIFFERENTIAL Routine 10/10/2024 11:10 AM EDT Essential hypertension CBC WITH AUTO DIFFERENTIAL Routine 10/10/2024 11:10 AM EDT Essential hypertension HEMOGLOBIN A1C Routine 10/10/2024 11:10 AM EDT Impaired glucose tolerance COMPREHENSIVE METABOLIC PANEL Routine 10/10/2024 11:10 AM EDT Essential hypertension Hyperlipidemia, unspecified hyperlipidemia type LIPID PANEL Routine 04/11/2024 11:01 AM EST Hyperlipidemia, unspecified hyperlipidemia type SCANNED - INFLUENZA 12/12/2018 from Last 3 Months or Most Recently Relevant to Health Maintenance Results * (ABNORMAL) POC Urinalysis Dipstick, Automated (10/10/2024 2:11 PM EDT) Color Yellow Yellow, Straw, Dark Yellow, Antonella [facility] Clarity, UA Clear Clear [facility] Specific [place] 1.010 1.005 - 1.030 [facility] pH, Urine 7.0 5.0 - 8.0 [facility] Leukocytes 500 Jean/ul(A) Negative [facility] Nitrite, UA Negative Negative [facility] Protein, POC Negative Negative mg/dL [facility] Glucose, UA Negative Negative mg/dL [facility] Ketones, UA Negative Negative [facility] Urobilinogen, UA Normal Normal, 0.2 E.U./dL [facility] Bilirubin Negative Negative [facility] Blood, UA Negative Negative [facility] Lot Number [id number] [facility] Expiration Date 09/02/25 [facility] Urine 10/10/2024 2:11 PM EDT us Romero Pulido MD POINT OF CARE TEST ORDERAB LES Final Result [facility]
[address] [place] [address], * POC Microalbumin (10/10/2024 2:11 PM EDT) Microalbumin, Urine 30 [facility] Creatinine, Urine 200 [facility] Lot Number [id number] [facility] Expiration Date 07/03/25 [facility] POC Urine Albumin Creatinine Ratio <30 <30 [facility] Urine 10/10/2024 2:11 PM EDT us Romero Pulido MD POINT OF CARE TEST ORDERAB LES Final Result Performing Organization Address [facility] Co de Phone Number [facility]
[address] [place] [address], * Urine Culture - Urine, Urine, Clean Catch (10/10/2024 11:31 AM EDT) Urine Culture <10,000 CFU/mL Normal Urogenital Asia PAMELA 10/12/2024 10:55 AM EDT [facility] Urine Urine specimen obtained by clean catch procedure / Unknown Collection / Unknown 10/10/2024 11:31 AM EDT 10/10/2024 11:31 AM EDT [facility] - 10/12/2024 10:55 AM EDT Colonization of the urinary tract without infection is common. Treatment is discouraged unless the patient is symptomatic, , or undergoing an invasive urologic procedure. Romero Pulido MD MICROBIOLOGY - GENERAL ORD ERABLES Final Result Performing Organization Address [facility] Co de Phone Number [facility]
[address] [place] [address], * (ABNORMAL) CBC Auto Differential (10/10/2024 11:10 AM EDT) Pathologist [facility] WBC 5.00 3.40 - 10.80 10*3/mm3 10/10/2024 6:24 PM EDT [facility] RBC 3.74(L) 3.77 - 5.28 10*6/mm3 10/10/2024 6:24 PM EDT [facility] Hemoglobin 13.0 12.0 - 15.9 g/dL 10/10/2024 6:24 PM EDT [facility] Hematocrit 37.8 34.0 - 46.6 % 10/10/2024 6:24 PM EDT [facility] MCV 101.1(H) 79.0 - 97.0 fL 10/10/2024 6:24 PM EDT [facility] MCH 34.8(H) 26.6 - 33.0 pg 10/10/2024 6:24 PM [facility] MCHC 34.4 31.5 - 35.7 g/dL 10/10/2024 6:24 PM [facility] RDW 11.1(L) 12.3 - 15.4 % 10/10/2024 6:24 PM T [facility] RDW-SD 40.9 37.0 - 54.0 fl 10/10/2024 6:24 PM T [facility] MPV 11.8 6.0 - 12.0 fL 10/10/2024 6:24 PM [facility] Platelets 208 140 - 450 10*3/mm3 10/10/2024 6:24 PM T [facility] Neutrophil % 68.8 42.7 - 76.0 % 10/10/2024 6:24 PM [facility] Lymphocyte % 16.0(L) 19.6 - 45.3 % 10/10/2024 6:24 PM T [facility] Monocyte % 12.2(H) 5.0 - 12.0 % 10/10/2024 6:24 PM [facility] Eosinophil % 2.2 0.3 - 6.2 % 10/10/2024 6:24 PM EDT [facility] Basophil % 0.4 0.0 - 1.5 % 10/10/2024 6:24 PM T [facility] Immature Grans % 0.4 0.0 - 0.5 % 10/10/2024 6:24 PM EDT [facility] Neutrophils, Absolute 3.44 1.70 - 7.00 10*3/mm3 10/10/2024 6:24 PM T [facility] Lymphocytes, Absolute 0.80 0.70 - 3.10 10*3/mm3 10/10/2024 6:24 PM [facility] Monocytes, Absolute 0.61 0.10 - 0.90 10*3/mm3 10/10/2024 6:24 PM EDT [facility] Eosinophils, Absolute 0.11 0.00 - 0.40 10*3/mm3 10/10/2024 6:24 PM EDT [facility] Basophils, Absolute 0.02 0.00 - 0.20 10*3/mm3 10/10/2024 6:24 PM EDT [facility] Immature Grans, Absolute 0.02 0.00 - 0.05 10*3/mm3 10/10/2024 6:24 PM EDT [facility] nRBC 0.0 0.0 - 0.2 /100 WBC 10/10/2024 6:24 PM EDT [facility] Blood Venipuncture / Unknown 10/10/2024 11:10 AM EDT 10/10/2024 11:10 AM EDT Romero Pulido MD LAB BLOOD ORDERABLES Final Result Performing Organization Address City/[facility]/ZIP Co de Phone Number [facility]
[address] [place] [address], * (ABNORMAL) Hemoglobin A1c (10/10/2024 11:10 AM EDT) Hemoglobin A1C 6.20(H) 4.80 - 5.60 % 10/10/2024 7:04 PM EDT [facility] Blood Venipuncture / Unknown 10/10/2024 11:10 AM EDT 10/10/2024 11:10 AM EDT Narrative [facility] - 10/10/2024 7:04 PM EDT Hemoglobin A1C Ranges: Increased Risk for Diabetes 5.7% to 6.4% Diabetes >= 6.5% Diabetic Goal < 7.0% us Romero Pulido MD LAB BLOOD ORDERABLES Final Result [facility]
[address] [place] [address], * (ABNORMAL) Comprehensive Metabolic Panel (10/10/2024 11:10 AM EDT) [facility] Glucose 101(H) 65 - 99 mg/dL 10/10/2024 7:48 PM EDT [facility] BUN 12.0 8.0 - 23.0 mg/dL 10/10/2024 7:48 PM EDT [facility] Creatinine 0.61 0.57 - 1.00 mg/dL 10/10/2024 7:48 PM EDT [facility] Sodium 133(L) 136 - 145 mmol/L 10/10/2024 7:48 PM EDT [facility] Potassium 4.6 3.5 - 5.2 mmol/L 10/10/2024 7:48 PM EDT [facility] Chloride 92(L) 98 - 107 mmol/L 10/10/2024 7:48 PM EDT [facility] CO2 30.0(H) 22.0 - 29.0 mmol/L 10/10/2024 7:48 PM EDT [facility] Calcium 10.1 8.6 - 10.5 mg/dL 10/10/2024 7:48 PM EDT [facility] Total Protein 7.2 6.0 - 8.5 g/dL 10/10/2024 7:48 PM EDT [facility] Albumin 4.4 3.5 - 5.2 g/dL 10/10/2024 7:48 PM EDT [facility] ALT (SGPT) 12 1 - 33 U/L 10/10/2024 7:48 PM EDT [facility] AST (SGOT) 26 1 - 32 U/L 10/10/2024 7:48 PM EDT [facility] Alkaline Phosphatase 103 39 - 117 U/L 10/10/2024 7:48 PM EDT [facility] Total Bilirubin 0.4 0.0 - 1.2 mg/dL 10/10/2024 7:48 PM EDT [facility] Globulin 2.8 gm/dL 10/10/2024 7:48 PM EDT [facility] A/G Ratio 1.6 g/dL 10/10/2024 7:48 PM EDT [facility] BUN/Creatinine Ratio 19.7 7.0 - 25.0 10/10/2024 7:48 PM EDT [facility] Anion Gap 11.0 5.0 - 15.0 mmol/L 10/10/2024 7:48 PM EDT [facility] eGFR 86.7 >60.0 mL/min/1.7 3 10/10/2024 7:48 PM EDT [facility] Blood Structure of left upper limb / Unknown Venipuncture / Unknown 10/10/2024 11:10 AM EDT 10/10/2024 11:10 AM EDT [facility] - 10/10/2024 7:48 PM EDT GFR [...] does not include race as a factor us Romero Pulido MD LAB BLOOD ORDERABLES Final Result [facility]
[address] [place] [address], * (ABNORMAL) Lipid Panel (04/11/2024 11:01 AM EST) Total Cholesterol 161 0 - 200 mg/dL 04/11/2024 7:20 PM EST [facility] Triglycerides 56 0 - 150 mg/dL 04/11/2024 7:20 PM EST [facility] HDL Cholesterol 71(H) 40 - 60 mg/dL 04/11/2024 7:20 PM EST [facility] LDL Cholesterol 79 0 - 100 mg/dL 04/11/2024 7:20 PM EST [facility] VLDL Cholesterol 11 5 - 40 mg/dL 04/11/2024 7:20 PM EST [facility] LDL/HDL Ratio 1.11 04/11/2024 7:20 PM EST [facility] Blood Structure of left upper limb / Unknown Venipuncture / Unknown 04/11/2024 11:01 AM EST 04/11/2024 11:01 AM EST Narrative [facility] - 04/11/2024 7:20 PM EST Cholesterol Reference Ranges (U.S. Department of Health and Human Services ATP III Classifications) Desirable <200 mg/dL Borderline High 200-239 mg/dL High Risk >240 mg/dL Triglyceride Reference Ranges (U.S. Department of Health and Human Services ATP III Classifications) Normal <150 mg/dL Borderline High 150-199 mg/dL High 200-499 mg/dL Very High >500 mg/dL HDL Reference Ranges (U.S. Department of Health and Human Services ATP III Classifications) Low <40 mg/dl (major risk factor for CHD) High >60 mg/dl ('negative' risk factor for CHD) LDL Reference Ranges (U.S. Department of Health and Human Services ATP III Classifications) Optimal <100 mg/dL Near Optimal 100-129 mg/dL Borderline High 130-159 mg/dL High 160-189 mg/dL Very High >189 mg/dL LDL is calculated using the NIH LDL-C calculation. Romero Pulido MD LAB BLOOD ORDERABLES Final Result [facility]
[address] [place] [address], * SCANNED - INFLUENZA (12/12/2018) Kiara Walter PA-C CHART REVIEW TABS Final Result from Last 3 Months or Most Recently Relevant to Health Maintenance Insurance MEDICARE A & B Member Subscriber Plan / Payer (Ef fective 2002-Present) Name:Viviana Fisher Member ID:[id number] Relation to Subscriber:Self Name:Viviana Fisher Subscriber ID:[id number] Payer ID:[id number] Group ID:Not on file Type:Not on file Address: [address] Advance Directives Documents on File Type Date Recorded Patient Grounds Person Expl anation LIVING WILL - SCAN 04/19/2024 9:15 AM JULEE HUERTA WILL DIRECTIVE/HEALTH CARE SURROGATE, [employer], 03/19/1999 LIVING WILL - SCAN 02/01/2021 12:19 PM JUAN F BLACKWELL WILL DIRECTIVE/HEALTH CARE SURROGATE, [employer], 08/28/2012 Care Teams Commodity Buyer Relationship Specialty Start Date End Date Romero Pulido MD [address] [facility] [address] [place] [address] PCP - General Internal Medicine 08/19/19
--- OUTSIDE RECORDS SUMMARY | 2024-11-11 10:26 | XMS_ITS | Encounter Summary ---
Author Organization [facility] Address [address] [place] [address] Care Team Providers Care Buffing Wheel Former Automatic Name Role Phone Romero Pulido MD Primary Care Provider +1- [phone] Encounter Details Date Type Department Care Team (Late Contact Info) Description 10/13/2024 Results Follow-Up [facility] [address] [facility] [address] [place] [address] Romero Pulido MD [address] [facility] [address] [place] [address] Social History Tobacco Use Types Packs/Day Years Used Date Smoking Tobacco: Never Passive Smoke Exposure: Never Smokeless Tobacco: Never Alcohol Use Standard Drinks/Week Comments No 0 [...] on file documented as of this encounter Plan of Treatment Upcoming Encounters Date Type Department Care Team (Late Contact Info) Description 04/23/2025 10:00 AM EST Office Visit [facility] [address] [facility] [address] [place] [address] Romero Pulido MD [address] [facility] [address] [place] [address] documented as of this encounter Visit Diagnoses Not on filedocumented in this encounter Care Teams Buffing Wheel Former Automatic Relationship Specialty Start Date End Date Romero Pulido MD [address] [facility] [address] [place] [address] PCP - General Internal Medicine 08/19/19 documented as of this encounter
--- OUTSIDE RECORDS SUMMARY | 2024-11-11 10:26 | XMS_ITS | Encounter Summary ---
Author Organization [facility] Address [address] [place] [address] Care Team Providers Care Licensed Practical Vocational Nurse Name Role Phone Romero Pulido MD Primary Care Provider +1- [phone] Encounter Details Date Type Department Care Team (Latest Contact Info) Description 10/10/2024 Travel Social History Tobacco Use Types Packs/Day Years [...] Description 04/23/2025 10:00 AM EST Office Visit [facility] & [facility]ICS [address] [facility] [address] [place] [address] Romero Pulido MD [address] [facility] [address] [place] [address] documented as of this encounter Visit Diagnoses Not on filedocumented in this encounter Care Teams Licensed Practical Vocational Nurse Relationship Specialty Start Date End Date Rmoero Pulido MD [address] [facility] [address] [place] [address] PCP - General Internal Medicine 08/19/19 documented as of this encounter
--- OUTSIDE RECORDS SUMMARY | 2024-11-11 10:26 | XMS_ITS | Encounter Summary ---
Author Organization [facility] Address [address] [place] [id number] Care Team Providers Care Supply Room Clerk Name Role Phone Romero Pulido MD Primary Care Provider +1- [phone] Reason for Visit * Reason Onset Date Comments Med Refill 11/27/2020 Encounter Details Date Type Department Care Team (Late st Contact Info) Description 11/27/2020 Refill [facility]ICS [address] [address] Romero Pulido MD 100 [facility] [address] [place] [address] Acute cystitis with hematuria Social History Tobacco Use Types Packs/Day Years Used Date Smoking Tobacco: Never Smokeless Tobacco: Never Alcohol Use Standard Drinks/Week Comments No 0 (1 standard drink = 0.6 oz pur e alcohol) PHQ-2 Answer Date Recorded Retired Total Score 0 11/27/2020 Comments No Sex and Gender Information Value Date Recorded Sex Assigned at Female 10/03/2024 2:48 PM EDT Legal Sex Female 12:50 PM EDT Gender Identity Not on file Sexual Orientation Not on file documented as of this encounter Miscellaneous Notes * Telephone Encounter - Kelsey Franklin - 11/27/2020 3:58 PM EDT Caller: [phone] - [address] [phone] [facility] [phone] FX Relationship: Pharmacy Medication requested (name and dosage): ciprofloxacin (Cipro) 500 MG tablet Pharmacy where request should be sent: [facility] [address] [phone] [facility] [phone] FX Additional details provided by patient: PHARMACY STATES THAT THIS MEDICATION IS ON BACK ORDER. Best call back number: [phone] Does the patient have less than a 3 day supply: [x] Yes [] No Yared Cruz Rep 11/27/20 15:59 EDT documented in this encounter Plan of Treatment Upcoming Encounters Date Type Department Care Team (Late st Contact Info) Description 04/23/2025 10:00 AM EST Office Visit [facility] [address] [phone] Romero Pulido MD [address] [address] documented as of this encounter Visit Diagnoses Diagnosis Acute cystitis with hematuria documented in this encounter Care Teams Supply Room Clerk Relationship Specialty Start Date End Date Romero Pulido MD [address] [facility] 200 [place] [address] PCP - General Internal Medicine 08/19/19 documented as of this encounter
== END 2024-11-09 23:59 ==
LOC: LAB.DROPOF 11-11 10:23
PROVIDERS: PCP Nurse Practitioner Family; Visit Provider Nurse Practitioner Family
DX: N39.0 Urinary tract infection, site not specified (principal)
CPT/HCPCS: 87086

== ENCOUNTER 2024-12-17 16:44 | Outpatient (CLI) | payer MEDICARE, OTHER, SELFPAY ==
--- OUTSIDE RECORDS SUMMARY | 2024-12-18 14:08 | XMS_ITS | Encounter Summary ---
[facility] Address [address] [place] [address] Care Team Providers Care Appeals Reviewer Veteran Name Role Phone Romero Pulido MD Primary Care Provider +1- [phone] Encounter Details Date Type Department Care Team (Late Contact Info) Description 10/13/2024 Results Follow-Up [facility] 100 [facility] 200 [place] [address] Romero Pulido MD 100 [facility] 200 [place] [address] Social History Tobacco Use Types [...] AM EST Office Visit [facility] [address] [facility] [address] [place] [address] Romero Pulido MD 100 [facility] 200 [place] [address] documented as of this encounter Visit Diagnoses Not on filedocumented in this encounter Care Teams Appeals Reviewer Veteran Relationship Specialty Start Date End Date Romero Pulido MD 100 [facility] 200 [place] [address] PCP - General Internal Medicine 08/19/19 documented as of this encounter
--- OUTSIDE RECORDS SUMMARY | 2024-12-18 14:09 | XMS_ITS | Clinical Summary ---
[facility] Address [address] [place] [id number] Care Team Providers Care Fixed Income Director Name Role Phone Romero Pulido MD Primary Care Provider +1- [phone] Allergies Active Allergy Reactions Criticality Noted Date [...] Active butalbital-aceta minophen-caffein e-codeine (FIORICET WITH CODEINE) 10-984-16-30 MG per capsuleIndicatio ns:Migraine without status migrainosus, [...] Department Care Team Description 10/13/2024 Results Follow-Up [facility]AT[facility] [address] [place] [address] [address] [place] [address] Romero Pulido MD 10/10/2024 10:00 AM EDT Office Visit [facility] [address] [place] [phone] Romero Pulido MD Essential hypertension (Primary Dx); [...] Description 04/23/2025 10:00 AM EST Office Visit [facility] 100 [facility] 200 [place] [address] Romero Pulido MD 100 [facility] [address] [place] [address] Health Maintenance Due Date Last Done Comments TDAP/TD VACCINES (1 - Tdap) 1954 RSV Vaccine - Adults (1 - 1-dose 75+ series) 2012 INFLUENZA VACCINE 10/04/2024 12/25/2023, , 02/01/2023, Additional history exists COVID-19 Vaccine ( - 2024- season) 2024 03/30/2022, 02/06/2021, 05/28/2020 DXA SCAN 01/04/2025 Postponed from 1937 (Patient [...] Color Yellow Yellow, Straw, Dark Yellow, Antonella [facility] Clarity, UA Clear Clear [facility] Specific Atkinson 1.010 1.005 - 1.030 [facility] pH, Urine 7.0 5.0 - 8.0 [facility] Leukocytes 500 Jean/ul(A) Negative [facility] Nitrite, UA Negative Negative [facility] Protein, POC Negative Negative mg/dL [facility] Glucose, UA Negative Negative mg/dL [facility] Ketones, UA Negative Negative [facility] Urobilinogen, UA Normal Normal, 0.2 E.U./dL [facility] Bilirubin Negative Negative [facility] Blood, UA Negative Negative [facility] Lot Number [id number] [facility] Expiration Date 09/02/25 [facility] Urine 10/10/2024 2:11 PM EDT us Romero Pulido MD POINT OF CARE TEST ORDERAB LES Final Result [facility]
[address] [place] [address], * POC Microalbumin (10/10/2024 2:11 PM EDT) Microalbumin, Urine 30 [facility] Creatinine, Urine 200 [facility] Lot Number [id number] [facility] Expiration Date 07/03/25 [facility] POC Urine Albumin Creatinine Ratio <30 <30 [facility] Urine 10/10/2024 2:11 PM EDT us Romero Pulido MD POINT OF CARE TEST ORDERAB LES Final Result Performing Organization Address [facility] Co de Phone Number [facility]
[address] [place] [address], * Urine Culture - Urine, Urine, Clean Catch (10/10/2024 11:31 AM EDT) Urine Culture <10,000 CFU/mL Normal [facility]rogen[facility] [place] PAMELA 10/12/2024 10:55 AM EDT [facility] Urine Urine specimen obtained by clean catch procedure / Unknown Collection / Unknown 10/10/2024 11:31 AM EDT 10/10/2024 11:31 AM EDT [facility] - 10/12/2024 10:55 AM EDT Colonization of the urinary tract without infection is common. Treatment is discouraged unless the patient is symptomatic, , or undergoing an invasive urologic procedure. Romero Pulido MD MICROBIOLOGY - GENERAL ORD ERABLES Final Result Performing Organization Address [facility] Co de Phone Number [facility]
[address] [place] [address], * (ABNORMAL) CBC Auto Differential (10/10/2024 11:10 AM EDT) Pathologist [facility] WBC 5.00 3.40 - 10.80 10*3/mm3 10/10/2024 6:24 PM EDT [facility] RBC 3.74(L) 3.77 - 5.28 10*6/mm3 10/10/2024 6:24 PM EDT [facility] Hemoglobin 13.0 12.0 - 15.9 g/dL 10/10/2024 6:24 PM EDT [facility] Hematocrit 37.8 34.0 - 46.6 % 10/10/2024 6:24 PM EDT [facility] MCV 101.1(H) 79.0 - 97.0 fL 10/10/2024 6:24 PM EDT [facility] MCH 34.8(H) 26.6 - 33.0 pg 10/10/2024 6:24 PM [facility] MCHC 34.4 31.5 - 35.7 g/dL 10/10/2024 6:24 PM [facility] RDW 11.1(L) 12.3 - 15.4 % 10/10/2024 6:24 PM T [facility] RDW-SD 40.9 37.0 - 54.0 fl 10/10/2024 6:24 PM T [facility] MPV 11.8 6.0 - 12.0 fL 10/10/2024 6:24 PM [facility] Platelets 208 140 - 450 10*3/mm3 10/10/2024 6:24 PM T [facility] Neutrophil % 68.8 42.7 - 76.0 % 10/10/2024 6:24 PM [facility] Lymphocyte % 16.0(L) 19.6 - 45.3 % 10/10/2024 6:24 PM T [facility] Monocyte % 12.2(H) 5.0 - 12.0 % 10/10/2024 6:24 PM [facility] Eosinophil % 2.2 0.3 - 6.2 % 10/10/2024 6:24 PM EDT [facility] Basophil % 0.4 0.0 - 1.5 % 10/10/2024 6:24 PM T [facility] Immature Grans % 0.4 0.0 - 0.5 % 10/10/2024 6:24 PM EDT [facility] Neutrophils, Absolute 3.44 1.70 - 7.00 10*3/mm3 10/10/2024 6:24 PM T [facility] Lymphocytes, Absolute 0.80 0.70 - 3.10 10*3/mm3 10/10/2024 6:24 PM [facility] Monocytes, Absolute 0.61 0.10 - 0.90 10*3/mm3 10/10/2024 6:24 PM EDT [facility] Eosinophils, Absolute 0.11 0.00 - 0.40 10*3/mm3 10/10/2024 6:24 PM EDT [facility] Basophils, Absolute 0.02 0.00 - 0.20 10*3/mm3 10/10/2024 6:24 PM EDT [facility] Immature Grans, Absolute 0.02 0.00 - 0.05 10*3/mm3 10/10/2024 6:24 PM EDT [facility] nRBC 0.0 0.0 - 0.2 /100 WBC 10/10/2024 6:24 PM EDT [facility] Blood Venipuncture / Unknown 10/10/2024 11:10 AM EDT 10/10/2024 11:10 AM EDT Romero Pulido MD LAB BLOOD ORDERABLES Final Result Performing Organization Address City/[facility]/ZIP Co de Phone Number [facility]
[address] [place] [address], * (ABNORMAL) Hemoglobin A1c (10/10/2024 11:10 AM EDT) Hemoglobin A1C 6.20(H) 4.80 - 5.60 % 10/10/2024 7:04 PM EDT [facility] Blood Venipuncture / Unknown 10/10/2024 11:10 AM EDT 10/10/2024 11:10 AM EDT Narrative [facility] - 10/10/2024 7:04 PM EDT Hemoglobin A1C Ranges: Increased Risk for Diabetes 5.7% to 6.4% Diabetes >= 6.5% Diabetic Goal < 7.0% us Romero Pulido MD LAB BLOOD ORDERABLES Final Result [facility]
[address] [place] [address], * (ABNORMAL) Comprehensive Metabolic Panel (10/10/2024 11:10 AM EDT) [facility] Glucose 101(H) 65 - 99 mg/dL 10/10/2024 7:48 PM EDT [facility] BUN 12.0 8.0 - 23.0 mg/dL 10/10/2024 7:48 PM EDT [facility] Creatinine 0.61 0.57 - 1.00 mg/dL 10/10/2024 7:48 PM EDT [facility] Sodium 133(L) 136 - 145 mmol/L 10/10/2024 7:48 PM EDT [facility] Potassium 4.6 3.5 - 5.2 mmol/L 10/10/2024 7:48 PM EDT [facility] Chloride 92(L) 98 - 107 mmol/L 10/10/2024 7:48 PM EDT [facility] CO2 30.0(H) 22.0 - 29.0 mmol/L 10/10/2024 7:48 PM EDT [facility] Calcium 10.1 8.6 - 10.5 mg/dL 10/10/2024 7:48 PM EDT [facility] Total Protein 7.2 6.0 - 8.5 g/dL 10/10/2024 7:48 PM EDT [facility] Albumin 4.4 3.5 - 5.2 g/dL 10/10/2024 7:48 PM EDT [facility] ALT (SGPT) 12 1 - 33 U/L 10/10/2024 7:48 PM EDT [facility] AST (SGOT) 26 1 - 32 U/L 10/10/2024 7:48 PM EDT [facility] Alkaline Phosphatase 103 39 - 117 U/L 10/10/2024 7:48 PM EDT [facility] Total Bilirubin 0.4 0.0 - 1.2 mg/dL 10/10/2024 7:48 PM EDT [facility] Globulin 2.8 gm/dL 10/10/2024 7:48 PM EDT [facility] A/G Ratio 1.6 g/dL 10/10/2024 7:48 PM EDT [facility] BUN/Creatinine Ratio 19.7 7.0 - 25.0 10/10/2024 7:48 PM EDT [facility] Anion Gap 11.0 5.0 - 15.0 mmol/L 10/10/2024 7:48 PM EDT [facility] eGFR 86.7 >60.0 mL/min/1.7 3 10/10/2024 7:48 PM EDT [facility] Blood Structure of left upper limb / Unknown Venipuncture / Unknown 10/10/2024 11:10 AM EDT 10/10/2024 11:10 AM EDT [facility] - 10/10/2024 7:48 PM EDT GFR [...] Pulido MD LAB BLOOD ORDERABLES Final Result [facility]
[address] [place] [address], * (ABNORMAL) Lipid Panel (04/11/2024 11:01 AM EST) Total Cholesterol 161 0 - 200 mg/dL 04/11/2024 7:20 PM EST [facility] Triglycerides 56 0 - 150 mg/dL 04/11/2024 7:20 PM EST [facility] HDL Cholesterol 71(H) 40 - 60 mg/dL 04/11/2024 7:20 PM EST [facility] LDL Cholesterol 79 0 - 100 mg/dL 04/11/2024 7:20 PM EST [facility] VLDL Cholesterol 11 5 - 40 mg/dL 04/11/2024 7:20 PM EST [facility] LDL/HDL Ratio 1.11 04/11/2024 7:20 PM EST [facility] Blood Structure of left upper limb / Unknown Venipuncture / Unknown 04/11/2024 11:01 AM EST 04/11/2024 11:01 AM EST Narrative [facility] - 04/11/2024 7:20 PM EST Cholesterol [...] Pulido MD LAB BLOOD ORDERABLES Final Result [facility]
[address] [place] [address], * SCANNED - INFLUENZA (12/12/2018) Kiara Walter PA-C CHART REVIEW TABS Final Result from Last 3 Months or Most Recently Relevant to Health Maintenance Insurance MEDICARE A & B Member Subscriber Plan / Payer (Ef fective 2002-Present) Name:Viviana Fisher Member ID:[id number] Relation to Subscriber:Self Name:Viviana Fisher Subscriber ID:[id number] Payer ID:[id number] Group ID:Not on file Type:Not on file Address: [address] Advance Directives Documents on File Type Date Recorded Patient Compensation Consultant Expl anation LIVING WILL - SCAN 04/19/2024 9:15 AM JULEE HUERTA WILL DIRECTIVE/HEALTH CARE SURROGATE, [employer], 03/19/1999 LIVING WILL - SCAN 02/01/2021 12:19 PM JUAN F BLACKWELL WILL DIRECTIVE/HEALTH CARE SURROGATE, [employer], 08/28/2012 Care Teams Fixed Income Director Relationship Specialty Start Date End Date Romero Pulido MD [address] [facility] [address] [place] [address] PCP - General Internal Medicine 08/19/19
--- OUTSIDE RECORDS SUMMARY | 2024-12-18 14:09 | XMS_ITS | Encounter Summary ---
Author Organization [facility] Address [address] [place] [phone] Care Team Providers Care Television Parts Tester Name Role Phone Romero Pulido MD Primary Care Provider +1- [phone] Reason for Visit * Reason Onset Date Comments Med Refill 11/27/2020 Encounter Details Date Type Department Care Team (Late st Contact Info) Description 11/27/2020 Refill [facility] [address] [phone] Romero Pulido MD 100 [facility] 200 [place] [address] Acute cystitis with hematuria Social [...] PHARMACY 591 - [facility] - [address] [phone] [facility] [phone] FX Relationship: Pharmacy Medication requested (name and dosage): ciprofloxacin (Cipro) 500 MG tablet Pharmacy where request should be sent: [facility] AN[facility] [address] [phone] [facility] [phone] FX Additional details provided by patient: PHARMACY STATES THAT THIS MEDICATION IS ON BACK ORDER. Best call back number: [phone] Does the patient have less than a 3 day supply: [x] Yes [] No Yared Cruz Rep 11/27/20 15:59 EDT documented in this encounter Plan of Treatment Upcoming Encounters Date Type Department Care Team (Late st Contact Info) Description 04/23/2025 10:00 AM EST Office Visit [facility] [address] [phone] Romero Pulido MD [address] [address] documented as of this encounter Visit Diagnoses Diagnosis Acute cystitis with hematuria documented in this encounter Care Teams Television Parts Tester Relationship Specialty Start Date End Date Romero Pulido MD 100 [facility] [address] [place] [address] PCP - General Internal Medicine 08/19/19 documented as of this encounter
== END 2024-12-17 23:59 | disposition home or self-care (01) ==
LOC: LAB.DROPOF 12-18 14:01
PROVIDERS: PCP Nurse Practitioner Family; Visit Provider Nurse Practitioner Family
DX: N30.01 Acute cystitis with hematuria (principal)
CPT/HCPCS: 87086